=== PATIENT | male | born 1995 | race Hispanic/Latino ===

== ENCOUNTER → 2017-04-13 | Outpatient (CLI) | payer BC ==
--- NOTE | 2017-04-13 12:16 | RAD ---
EXAM DESCRIPTION: Chest,2 Views CLINICAL HISTORY: 21 years, Male, UNSPECIFIED ASTHMA COMPARISON: None. FINDINGS: Adequate inspiration without consolidation. Cardiac silhouette normal. IMPRESSION: Clear lungs and normal cardiac silhouette Electronically signed by: Felix Bhandari MD 04/13/2017 12:16 PM CDT
== END | disposition home or self-care (01) ==
LOC: YCFC.O 10:21
PROVIDERS: ATTEND Nurse Practitioner Family
DX: J45.909 Unspecified asthma, uncomplicated (principal)

== ENCOUNTER → 2018-02-08 | Outpatient (CLI) | payer BC ==
--- NOTE | 2018-02-09 11:23 | US ---
EXAM DESCRIPTION: Testicular CLINICAL HISTORY: 22 years Male, TESTICULAR MASS COMPARISON: None. TECHNIQUE: Sonogram of scrotal contents was performed. Doppler interrogation was utilized. FINDINGS: Right Right epididymal head is normal 1.2 cm in craniocaudal dimension with incidental small epididymal cysts. The right testicle measures 4.4 x 4.1 x 2.6 cm. Normal homogeneous texture of the right testicle. No intratesticular mass lesion on the right. Small hydrocele is seen in the right scrotal sac. Small scrotal sami with shadowing is incidentally noted inferiorly which measures 4 mm. Positive color flow in the right testicle which appears normal. Left Homogeneous texture of the left testicle is noted with no intratesticular lesion. The left testicle measures 5.3 x 3.4 x 2.5 cm. Prominent pampiniform plexus of veins is seen consistent with small varicocele. Veins measure up to 3 mm in diameter. In the head of the left epididymis, a prominent cyst measures 1.3 cm and enlarges the epididymal head to 1.8 cm. The cyst is most consistent with spermatocele or epididymal cyst. Minimal low level internal echoes within this cyst. Color-flow is normal in the left testicle. Arterial flow is identifiable. The area of palpable concern corresponds to the cyst in the left epididymis. IMPRESSION: Cyst in the left epididymal head consistent with spermatocele or epididymal cyst. This corresponds to the palpable area of concern according to the line welder. Normal sonographic appearance of testicles with no intratesticular lesion on either side. Small left varicocele. Small right hydrocele. Electronically signed by: El Carrizales MD 02/09/2018 11:21 AM CDT
== END ==
LOC: YCFC.O 16:47
DX: N50.89 Other specified disorders of the male genital organs (principal)